=== PATIENT | male | born 1980 | race Caucasian/White ===

== ENCOUNTER 2020-04-04 15:18 | Emergency (ER) | payer OTHER, SELFPAY ==
--- NOTE | ~2020-04-04 | XR_ITS ---
EXAMINATION: XR foot LT min 3V EXAM DATE: 04/04/2020 15:55 INDICATION: Left foot pain, felt a pop with bruising, swelling. Initial encounter. TECHNIQUE: Left foot dorsoplantar, lateral and oblique projections obtained and reviewed. There is n o prior study for comparison. FINDINGS: There is acute closed posttraumatic fracture through the proximal 3rd left 5th metatarsal shaft, Pritchett type fracture. No displacement. Alignment anatomic. These sometimes require internal fix ation. Follow-up is indicated to ensure union. There is overlying soft tissue swelling. Small inferi or calcaneal spur. IMPRESSION: Left 5th metatarsal shaft fracture. Reviewed, dictated and finalized at location A. Y OPERATOR
[2020-04-04 15:36] VITALS: BP 192/83; PULSE 107; RESP 20; TEMP 36.7; O2SAT 100
--- NOTE | 2020-04-04 15:55 | ED.LOWEXIN ---
HPI - Extremity Injury (Lower) General Chief Complaint: Extremity Injury, Lower Stated Complaint: Left Foot Pain Time Seen by Provider: 04/04/20 15:47 Source: patient and RN notes reviewed Mode of arrival: ambulatory Limitations: no limitations History of Present Illness HPI Narrative: 39-year-old male with history of uncontrolled type II diabetes presents with concern for left foot pain, bruising, swelling. Reports while at work he was pulling a heavy object with his arms when he felt a pop in his left foot causing pain. He denies any direct trauma or injury. Reports pain with weightbearing. Denies any intervention. Denies decreased sensation, range of motion, strength. MD complaint: foot injury Related Data Home Medications Medication Instructions Recorded Confirmed No Home Medications 04/04/20 04/04/20 Allergies Allergy/AdvReac Type Severity Reaction Status Date / Time No Known Allergies Allergy Verified 04/04/20 15:30 Review of Systems Review of Systems: Narrative: CONSTITUTIONAL: Denies malaise, chills, sweats, or fever. CARDIOVASCULAR: Denies chest pain, palpitations RESPIRATORY: Denies cough or dyspnea. SKIN: Denies lacerations or abrasions MUSCULOSKELETAL: Reports left lateral foot pain, bruising, swelling NEUROLOGIC: Denies numbness, weakness All systems reviewed & are unremarkable except as noted in HPI and below PMFSH Comments At time of signature, agree with nursing past medical, surgical, social and family history. There is no relevant family history pertinent to the presenting complaint Exam Narrative: Exam Narrative: GENERAL: Well-appearing, well-nourished, and in no acute distress. HEAD: Normocephalic, atraumatic. EYES: PERRLA, conjunctivae clear NECK: Supple. CHEST: Speaks in full sentences. No respiratory distress. HEART: Regular rate and rhythm. Normal and equal peripheral pulses. EXTREMITIES: Left foot, digits of left foot have normal strength and sensation, normal range of motion. Moderate lateral edema and ecchymosis. 5/5 strength with ankle and digit flexion and extension. Normal sensation with sensitivity to light touch and pain. Lateral foot tenderness. No open wounds, no skin tenting, no devitalized tissue or atrophy, no trophic changes, no obvious deformity, alignment normal, nearby joints and structures intact. Distal pulses palpable and equal bilaterally, skin warm, dry, pink. Capillary refill less than 3 seconds. SKIN: Warm, dry, no rash. NEURO: Alert and oriented x3. PSYCH: Normal mood and affect Course Course Emergency Course: Patient is aware of diagnosis, understands and agrees to treatment plan. Anticipatory guidance given. Patient agrees to follow-up as directed and is aware of reasons to seek care at the emergency department. Portions of this record may have been created with voice recognition software Vital Signs Vital signs: Vital Signs Temperature 98.1 F 04/04/20 15:36 Pulse Rate 107 H 04/04/20 15:36 Respiratory Rate 20 04/04/20 15:36 Blood Pressure 192/83 H 04/04/20 15:36 Pulse Oximetry 100 04/04/20 15:36 Temperature 98.1 F 04/04/20 15:36 Pulse Rate 107 H 04/04/20 15:36 Respiratory Rate 20 04/04/20 15:36 Blood Pressure 192/83 H 04/04/20 15:36 Pulse Oximetry 100 04/04/20 15:36 Reviewed. MDM - Extremity Injury (Lower) MDM Narrative Medical decision making narrative: Patients injury and pain is consistent with musculoskeletal etiology. No signs of neurological or vascular compromise on exam. Compartments and tissues are soft without signs of compartment syndrome. Pain is felt appropriate for further evaluation on an outpatient basis. Imaging Data My impression: Images reviewed, interpreted by radiologist, agree, see report. Radiologist's impression: EXAMINATION: XR foot LT min 3V EXAM DATE: 04/04/2020 15:55 INDICATION: Left foot pain, felt a pop with bruising, swelling. Initial encounter. TECHNIQUE: Left foot dorsoplanta
== END 2020-04-04 16:20 | disposition home or self-care (01) ==
PROVIDERS: Emergency Provider Nurse Practitioner
DX: S92.355A Nondisplaced fracture of fifth metatarsal bone, left foot, initial encounter for closed fracture (principal); X50.0XXA Overexertion from strenuous movement or load, initial encounter; E11.9 Type 2 diabetes mellitus without complications
CPT/HCPCS: 73630; 99214; G0463

== ENCOUNTER 2023-12-31 10:08 | Outpatient (CLI) | payer OTHER, SELFPAY ==
--- NOTE | ~2023-12-31 | XR_ITS ---
XR tibia fibula LT 2V Ordering provider: Kenzie Rey History: . Wound X2MO DISTAL TIB/FIB, MEDIAL SURFACE, RED.SWELLING . Comparison: None. FINDINGS: BONES: No acute fracture or dislocation. Calcaneus spur. JOINT SPACES: Normal. SOFT TISSUES: Normal. IMPRESSION: No acute osseous abnormality left leg. Reviewed, dictated and finalized at location A. E RETURNER
== END 2023-12-31 10:09 | disposition home or self-care (01) ==
DX: S81.802A Unspecified open wound, left lower leg, initial encounter (principal); X58.XXXA Exposure to other specified factors, initial encounter
CPT/HCPCS: 73590